=== PATIENT | female | born 1970 | race Two or more races ===

== ENCOUNTER 2025-09-03 10:53 | Inpatient (IN) | payer MEDICAID, OTHER ==
[~2025-09-03] VITALS: Ht 175.3 cm; Wt 80.1 kg
--- NOTE | 2025-09-03 11:39 | ED.PDOC ---
History of Present Illness HPI Comments 55-year-old female presents with multiple complaints. Patient reports having a pounding headache after falling and hitting the left side of her head, with no loss of consciousness or additional injuries sustained, this morning. She also reports on having a history of tremors, excessive sweating, multiple episodes of nausea and vomiting, and poor appetite for over the past 4-6 weeks. She reports only medical history of anxiety and [id number] aspirin use. Patient has not seen a primary care or outpatient specialist for symptoms, due to, recently, moving to local area. Denies any further acute symptoms. Chief Complaint: Fall Injury Time Seen by MD: 11:20 Reviewed Notes: Nurses Notes, Medications, Allergies Allergies: Coded Allergies: NO KNOWN ALLERGIES (Unverified , 09/03/25) Information Source: Patient Mode of Arrival: Ambulatory Severity: Moderate Timing: Weeks Duration: Since onset Prehospital treatment: None Past Medical History PAST MEDICAL HISTORY: Anxiety Surgical History: Denies all surgeries COLLEGE PRESIDENT History: No Pertinent COLLEGE PRESIDENT History Social History Smoker: Non-Smoker Alcohol: Denies ETOH Use Drugs: Denies Drug Use Lives In: Home All Other Systems: Reviewed and Negative (Comprehensive review of systems are negative unless otherwise stated in HPI) Physical Exam General Appearance: Moderate Distress HEENT: Normal ENT Inspection, Pharynx Normal, TMs Normal Neck: Full Range of Motion, Non-Tender, Normal, Normal Inspection Respiratory: Chest Non-Tender, Lungs Clear, No Accessory Muscle Use, No Respiratory Distress, Normal Breath Sounds Cardiovascular: No Edema, No JVD, No Murmur, No Gallop, Normal Peripheral Pulses, Regular Rate/Rhythm Breast Exam: Deferred Gastrointestinal: No Organomegaly, Non Tender, No Pulsatile Mass, Normal Bowel Sounds, Soft Genitalia: Deferred Pelvic: Deferred Rectal: Deferred Extremities: No calf tenderness, Normal capillary refill, Normal inspection, Normal range of motion, Non-tender, No pedal edema Musculoskeletal : Apperance: Normal Neurologic: Alert, creative strategist II-XII nml as Tested, No Motor Deficits, Normal Affect, Normal Mood, No Sensory Deficits Cerebellar Function: Normal Reflexes: Normal Skin: Dry, Normal Color, Warm Peripheral Pulses: 3+ Radial (R), 3+ Radial (L) Lymphatic: No Adenopathy Was a procedure done? Was a procedure done?: No Differential Dx Considerations may include: Closed head injury, fractures, contusions, abrasions, viral syndrome, pneumonia, sepsis, UTI, electrolyte imbalance, dehydration, among others X-Ray, Labs, Meds, VS Vital Signs Date Time Temp Pulse Resp B/P (MAP) Pulse Ox O2 Delivery O2 Flow Rate FiO2 09/03/25 11:02 115 09/03/25 10:55 97.6 120 20 120/84 98 97.6 Lab Test 09/03/25 12:51 09/03/25 12:00 Range/Units Urine Color Yellow Yellow Urine Clarity Clear Clear Urine pH 7.0 5.0-9.0 Urine Specific [place] 1.022 1.001-1.035 Urine Protein 1+ H Negative Urine Ketones 1+ H Negative Urine Blood Negative Negative /uL Urine Nitrite Negative Negative Urine Bilirubin Negative Negative Urine Urobilinogen Normal Negative mg/dL Urine Leukocyte Esterase Negative Negative /uL Urine RBC 3 0 - 4 /hpf Urine Microscopic WBC 1 0-5 /HPF Urine Squamous Epithelial Cells Few <5 /hpf Urine Bacteria None seen None Seen /hpf Urine Hyaline Casts Mod 0 - 2 /lpf Urine Mucus Few None Seen Urine Glucose Normal Normal mg/dL White Blood Count 7.9 4.4-10.8 10^3/uL Red Blood Count 4.88 4.0-5.20 10^6/uL Hemoglobin 15.3 12.2-16.2 g/dL Hematocrit 44.6 36.0-46.0 % Mean Corpuscular Volume 91.4 80.0-100.0 fL Mean Corpuscular Hemoglobin 31.4 28.0-32.0 pg Mean Corpuscular Hemoglobin Concent 34.3 32.0-36.0 g/dL Red Cell Distribution Width 13.6 11.8-14.3 % Platelet Count 429 140-450 10^3/uL Mean Platelet Volume 7.4 6.9-10.8 fL Neutrophils (%) (Auto) 69.6 37.0-80.0 % Lymphocytes (%) (Auto) 23.4 10.0-50.0 % Monocytes (%) (Auto) 5.2 0.0-12.0 % Eosinophils (%) (Auto) 0.3 0.0-7.0 % Basophils (%) (Auto) 1.5 0.0-2.0 % Neutrophils # (Auto) 5.5 1.6-8.6 10 ^3/uL Lymphocytes # (Auto) 1.8 0.4-5.4 10 ^3/uL Monocytes # (Auto) 0.4 0-1.3 10 ^3/uL Eosinophils # (Auto) 0 0-0.8 10 ^3/uL Basophils # (Auto) 0.1 0-0.2 10 ^3/uL Nucleated Red Blood Cells 0.1 % Sodium Level 139 136-145 mmol/L Potassium Level 4.5 3.5-5.1 mmol/L Chloride Level 103 98-107 mmol/L Carbon Dioxide Level 26 20-31 mmol/L Anion Gap 10 5-15 Blood Urea Nitrogen 11 9-23 mg/dL Creatinine 0.85 0.550-1.02 mg/dL Glomerular Filtration Rate Calc 80 >90 mL/min BUN/Creatinine Ratio 12.9 10.0-20.0 Serum Glucose 98 74-106 mg/dL Calcium Level 9.9 8.7-10.4 mg/dL Troponin I High Sensitivity < 3 L </=34 ng/L Current Medications Medications (Trade) Dose Ordered Sig/Jennifer Route Start Time Stop Time Status Last Admin Sodium Chloride 1,000 ml @ 1,000 mls/hr Q1H ONCE IV 09/03/25 12:00 09/03/25 12:59 DC 09/03/25 12:39 Lorazepam (Ativan Inj) 1 mg ONCE ONCE IV 09/03/25 12:00 09/03/25 12:01 DC 09/03/25 13:34 [place] [address] Ph: [phone] DIAGNOSTIC IMAGING Diagnostic Imaging Report : [id number] Signed PATIENT: PARISH MATTSON ACCT: [id number] UNIT: [id number] : 1970 LOC: ER ROOM / BED: / AGE / SEX: 55 / F ADM STATUS: REG ER SERVICE 1151 ORDERING PHYSICIAN: TANIA ROSS MD PROCEDURE(s): HWOCT - HEAD WITHOUT CONTRAST REASON: fall ORDER NUMBER(s): [id number], ACCESSION NUMBER(s): [id number] EXAM DESCRIPTION: CT HEAD WITHOUT CONTRAST CLINICAL HISTORY: fall COMPARISON: CT BRAIN on DOS: 04/19/23 TECHNIQUE: Noncontrast CT head was performed. Coronal MPR images were generated. CTDI/ DLP = / . Dose reduction technique with one or more of the following methods was performed: automated exposure control, adjustment of the mA and/or kV according to patient size, use of iterative reconstruction [place]. FINDINGS: No evidence of acute intracranial hemorrhage. No mass effect. No extra-axial collections of fluid or blood. The brain is normal in attenuation. The ventricles and sulci are normal in size for age. Clear basal cisterns. The calvarium is intact. The soft tissues are unremarkable. The paranasal sinuses and mastoid air cells are clear. IMPRESSION: 1. No acute intracranial findings. ATED BY: HAL QUIÑONES MD DICTATED DATE/TIME: 09/03/251257 SIGNED BY: HAL QUIÑONES MD SIGNED DATE/TIME: 09/03/251257 CC: Patient alert pain Anxious. Vitals stable. Answering questions. UA shows ketones. Possible gastroenteritis. Establish intravenous access. Was given fluids. She did fall hit her head. CT of the head reviewed does not show any acute changes pain Continues to be jittery. Possibly will need MRI. Explained to the patient. Continue monitoring. Time of 1ST Reevaluation: 11:50 Reevaluation 1ST: Unchanged Patient Education/Counseling: Diagnosis, Treatment Family Education/Counseling: No Family Present SEPSIS Sepsis Screen Date sepsis recognized/suspect: Sep 03, 2025 Time Sepsis recognized/suspect: 1056 Recent Procedure: No On Antibiotic Therapy: No Respiratory Rate >20: No Heart Rate >90: Yes Temp<36 C (96.8 F) or >38.3 C: No SBP <90 or MAP <65 mmHG: No New Acute Mental Status Change: No Is the patient on CPAP, BIPAP,: No Physician Orders Electrocardigram (09/03/25 11:09) Head Without Contrast (09/03/25 11:51) Vital Signs Date Time Temp Pulse Resp B/P (MAP) Pulse Ox O2 Delivery O2 Flow Rate FiO2 09/03/25 11:02 115 09/03/25 10:55 97.6 120 20 120/84 98 97.6 Laboratory Tests Test 09/03/25 12:00 White Blood Count 7.9 10^3/uL (4.4-10.8) Medications Medications Dose Ordered Sig/Jennifer Route Start Time Stop Time Status Last Admin Dose Admin Lorazepam 1 mg ONCE ONCE IV 09/03/25 12:00 09/03/25 12:01 DC 09/03/25 13:34 Sodium Chloride 1,000 ml @ 1,000 mls/hr Q1H ONCE IV 09/03/25 12:00 09/03/25 12:59 DC 09/03/25 12:39 Departure 1 Departure Time of Disposition: 14:42 Impression: Primary Impression: Head injury Qualified Codes: S09.90XA - Unspecified injury of head, initial encounter Additional Impressions: Gastroenteritis Dehydration Disposition: ADMITTED INPATIENT Admit to: Med Surg Condition: Guarded Critical Care Note Critical Care Time?: No Stability Stability form required: No Heart Score Heart Score: Heart Score Response (Comments) Value History N/A 0 EKG N/A 0 Age N/A 0 Risk Factors N/A 0 Troponin N/A 0 Total 0 I personally scribed for TANIA ROSS MD ([email or web address]) on 09/03/25 at 11:39. Electronically submitted by Federico Ngo ([email or web address]). I personally scribed for TANIA ROSS MD ([email or web address]) on 09/03/25 at 14:53. Electronically submitted by Federico Ngo ([email or web address]). TANIA ROSS MD Sep 03, 2025 11:39
[2025-09-03 12:13] LABS: Hematocrit 44.6 % (36.0-46.0); Hemoglobin 15.3 g/dL (12.2-16.2); Mean Corpuscular Hemoglobin 31.4 pg (28.0-32.0); Mean Corpuscular Volume 91.4 fL (80.0-100.0); Nucleated Red Blood Cells % 0.1 %
[2025-09-03 12:16] LABS: Chloride 103 mmol/L (98-107); Potassium 4.5 mmol/L (3.5-5.1); Sodium 139 mmol/L (136-145)
[2025-09-03 12:17] LABS: Anion Gap 10 (5-15); Carbon Dioxide 26 mmol/L (20-31)
[2025-09-03 12:18] LABS: Calcium 9.9 mg/dL (8.7-10.4)
[2025-09-03 12:22] LABS: BUN/Creatinine Ratio 12.9 (10.0-20.0); Blood Urea Nitrogen 11 mg/dL (9-23); Glucose 98 mg/dL (74-106)
[2025-09-03] MEDS: SODIUM CHLORIDE 0.9% 1,000 ML IV ONE ×2 (12:39→15:54)
--- NOTE | 2025-09-03 13:00 | DVH ---
EXAM DESCRIPTION: CT HEAD WITHOUT CONTRAST CLINICAL HISTORY: fall COMPARISON: CT BRAIN on DOS: 04/19/23 TECHNIQUE: Noncontrast CT head was performed. Coronal MPR images were generated. CTDI/ DLP = / . Dose reduction technique with one or more of the following methods was performed: automated exposure control, adjustment of the mA and/or kV according to patient size, use of iterative reconstruction [place]. FINDINGS: No evidence of acute intracranial hemorrhage. No mass effect. No extra-axial collections of fluid or blood. The brain is normal in attenuation. The ventricles and sulci are normal in size for age. Clear basal cisterns. The calvarium is intact. The soft tissues are unremarkable. The paranasal sinuses and mastoid air cells are clear. IMPRESSION: 1. No acute intracranial findings.
[2025-09-03 13:13] LABS: Urine Protein, UAD 1+ (Negative)
[2025-09-03] MEDS: LORazepam 2MG/ML-1ML VIAL IV ONE (13:34)
[2025-09-03] MEDS ORDERED: NITROGLYCERIN 0.4 MG SL TAB SL PRN (15:30)
[2025-09-03] MEDS ORDERED: MORPHINE SULFATE INJ 2 MG/ml SYRG IV PRN (15:30)
--- NOTE | 2025-09-03 15:32 | DVHHPRES ---
History of Present Illness Resident Creating Document: GEOVANI QUEEN RESIDENT History of Present Illness 55-year-old female patient with no known medical conditions presenting with fall and presyncope and 4-7 week history of multiple symptoms including excessive sweating, headaches, dizziness, and generalized shaking that has been ongoing daily. The patient reports the shaking affects the entire body but is most prominent in the hands, and describes feeling unable to control it, particularly in stressful situations. The patient has been experiencing significant sleep deprivation for 7-8 weeks, reporting no sleep since Friday. Associated gastrointestinal symptoms include nausea, vomiting approximately 4 times per week over the past 4 weeks, decreased appetite, and food not tasting good. The patient reports feeling sick every day and describes significant anxiety and nervousness, which may be contributing to stomach upset. 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 HEENT: Positive for headache. Cardiovascular: Negative for chest tightness. Gastrointestinal: Positive for nausea, vomiting (approximately 4 times per week for 4 weeks), decreased appetite, negative taste of food, stomach upset. Neurological: Positive for dizziness, generalized shaking (most prominent in hands). Psychiatric: Positive for anxiety, sleep deprivation for 7-8 weeks. Allergies: Coded Allergies: NO KNOWN ALLERGIES (Unverified , 09/03/25) Exam Vital Signs Vital Signs Date Time Temp Pulse Resp B/P (MAP) Pulse Ox O2 Delivery O2 Flow Rate FiO2 09/03/25 11:02 115 09/03/25 10:55 97.6 20 120/84 98 97.6 Exam General: Patient appears anxious with bloodshot eyes. HEENT: EOMI, Moist mucous membranes. No scleral icterus. No cervical lymp hadenopathy. LUNGS: Clear to auscultation bilaterally. No accessory muscle use. CARDIOVASCULAR: Regular rate and rhythm. No murmur. No JVD. ABDOMEN: Soft, nontender and nondistended. No palpable masses. EXTREMITIES: No edema. Nontender. Upper extremity tremor noted SKIN: No rashes or lesions. Warm. NEUROLOGIC: Alert and oriented X3 Labs/Xrays Labs Test 09/03/25 12:51 09/03/25 12:00 Range/Units Urine Color Yellow Yellow Urine Clarity Clear Clear Urine pH 7.0 5.0-9.0 Urine Specific [place] 1.022 1.001-1.035 Urine Protein 1+ H Negative Urine Ketones 1+ H Negative Urine Blood Negative Negative /uL Urine Nitrite Negative Negative Urine Bilirubin Negative Negative Urine Urobilinogen Normal Negative mg/dL Urine Leukocyte Esterase Negative Negative /uL Urine RBC 3 0 - 4 /hpf Urine Microscopic WBC 1 0-5 /HPF Urine Squamous Epithelial Cells Few <5 /hpf Urine Bacteria None seen None Seen /hpf Urine Hyaline Casts Mod 0 - 2 /lpf Urine Mucus Few None Seen Urine Glucose Normal Normal mg/dL White Blood Count 7.9 4.4-10.8 10^3/uL Red Blood Count 4.88 4.0-5.20 10^6/uL Hemoglobin 15.3 12.2-16.2 g/dL Hematocrit 44.6 36.0-46.0 % Mean Corpuscular Volume 91.4 80.0-100.0 fL Mean Corpuscular Hemoglobin 31.4 28.0-32.0 pg Mean Corpuscular Hemoglobin Concent 34.3 32.0-36.0 g/dL Red Cell Distribution Width 13.6 11.8-14.3 % Platelet Count 429 140-450 10^3/uL Mean Platelet Volume 7.4 6.9-10.8 fL Neutrophils (%) (Auto) 69.6 37.0-80.0 % Lymphocytes (%) (Auto) 23.4 10.0-50.0 % Monocytes (%) (Auto) 5.2 0.0-12.0 % Eosinophils (%) (Auto) 0.3 0.0-7.0 % Basophils (%) (Auto) 1.5 0.0-2.0 % Neutrophils # (Auto) 5.5 1.6-8.6 10 ^3/uL Lymphocytes # (Auto) 1.8 0.4-5.4 10 ^3/uL Monocytes # (Auto) 0.4 0-1.3 10 ^3/uL Eosinophils # (Auto) 0 0-0.8 10 ^3/uL Basophils # (Auto) 0.1 0-0.2 10 ^3/uL Nucleated Red Blood Cells 0.1 % Sodium Level 139 136-145 mmol/L Potassium Level 4.5 3.5-5.1 mmol/L Chloride Level 103 98-107 mmol/L Carbon Dioxide Level 26 20-31 mmol/L Anion Gap 10 5-15 Blood Urea Nitrogen 11 9-23 mg/dL Creatinine 0.85 0.550-1.02 mg/dL Glomerular Filtration Rate Calc 80 >90 mL/min BUN/Creatinine Ratio 12.9 10.0-20.0 Serum Glucose 98 74-106 mg/dL Calcium Level 9.9 8.7-10.4 mg/dL Troponin I High Sensitivity < 3 L </=34 ng/L SEPSIS Sepsis Screen Date sepsis recognized/suspect: Sep 03, 2025 Time Sepsis recognized/suspect: 1055 Recent Procedure: No On Antibiotic Therapy: No Respiratory Rate >20: No Heart Rate >90: Yes Temp<36 C (96.8 F) or >38.3 C: No SBP <90 or MAP <65 mmHG: No New Acute Mental Status Change: No Is the patient on CPAP, BIPAP,: No Physician Orders Electrocardigram (09/03/25 11:09) Head Without Contrast (09/03/25 11:51) Admit (09/03/25 15:26) Code Status (09/03/25 15:26) 2 Gm Sodium Diet (09/03/25 Dinner) Ondansetron Hcl (Zofran) (09/03/25 15:30) Complete Blood Count (09/04/25 04:00) Comprehensive Metabolic Panel (09/04/25 04:00) Echo 2d Mode Cardiac Dop (09/03/25 15:26) Acetaminophen Tablet (Tylenol Tablet) (09/03/25 15:30) Morphine Sulfate Injection (09/03/25 15:30) Nitroglycerin Sublingual (Ntrostat Subli (09/03/25 15:30) Morphine Sulfate Injection (09/03/25 15:30) Oxygen By Nasal Cannula (09/03/25 15:26) Stat Ekg For Chest Pain (09/03/25 15:26) Notify Md Of Changes From Base (09/03/25 15:26) Stereo Operator For 24 Hours (09/03/25 15:26) Emergency Dysrhythmia Protocol (09/03/25 15:26) Rhythm Strips Once Every Shift (09/03/25 15:26) NS (09/03/25 15:30) Lorazepam 2mg/Ml Inj (Ativan Inj) (09/03/25 15:30) Covid19 Antigen Isabelle (09/03/25 ) Rapid Influenza A&B (09/03/25 15:26) Thyroid Stimulating Hormone (09/03/25 15:26) Drug Screen (09/03/25 15:26) Free T4 (Free Thyroxine) (09/03/25 15:26) Vital Signs Date Time Temp Pulse Resp B/P (MAP) Pulse Ox O2 Delivery O2 Flow Rate FiO2 09/03/25 11:02 115 09/03/25 10:55 97.6 120 20 120/84 98 97.6 Laboratory Tests Test 09/03/25 12:00 White Blood Count 7.9 10^3/uL (4.4-10.8) Medications Medications Dose Ordered Sig/Jennifer Route Start Time Stop Time Status Last Admin Dose Admin Lorazepam 1 mg ONCE ONCE IV 09/03/25 12:00 09/03/25 12:01 DC 09/03/25 13:34 1 MG Sodium Chloride 1,000 ml @ 1,000 mls/hr Q1H ONCE IV 09/03/25 12:00 09/03/25 12:59 DC 09/03/25 12:39 1,000 MLS/HR Assessment/Plan Assessment/Plan # presyncope # fall # Generalized tremor and anxiety - Head CT shows: No acute intracranial findings. - Admit for further evaluation - Check thyroid function tests - Cardiac evaluation - IV fluids - Ativan - consult psychiatry if needed # insomnia - ordered thyroid function test -advised about sleep hygiene. # intractable nausea vomiting - Zofran as needed Goal of care discussed with patient for 37 minutes: Full code Plan discussed with Dr. Tony Plan discussed with: Patient My Orders Orders - GEOVANI QUEEN RESIDENT Procedure Category Date Status Time Admit ADMIT 09/03/25 Transmitted 15:26 Code Status CODE 09/03/25 Verified 15:26 2 Gm Sodium Diet DIET 09/03/25 Verified Dinner Ondansetron Hcl PHA 09/03/25 Verified (Zofran) 15:30 Complete Blood Count LAB 09/04/25 Verified 04:00 Comprehensive LAB 09/04/25 Verified Metabolic Panel 04:00 Echo 2d Mode Cardiac US 09/03/25 Verified DOP 15:26 Acetaminophen Tablet PHA 09/03/25 Verified (Tylenol Tablet) 15:30 Morphine Sulfate PHA 09/03/25 Verified Injection 15:30 Nitroglycerin PHA 09/03/25 Verified Sublingual (Ntrostat 15:30 Morphine Sulfate PHA 09/03/25 Verified Injection 15:30 Oxygen By Nasal RT 09/03/25 Verified Cannula 15:26 Stat Ekg For Chest [facility] 09/03/25 Verified Pain 15:26 Notify Md Of Changes [facility] 09/03/25 Verified From Base 15:26 Stereo Operator For [facility] 09/03/25 Verified 24 Hours 15:26 Emergency Dysrhythmia [facility] 09/03/25 Verified Protocol 15:26 Rhythm Strips Once [facility] 09/03/25 Verified Every Shift 15:26 NS PHA 09/03/25 Verified 15:30 Lorazepam 2mg/Ml Inj PHA 09/03/25 Verified (Ativan Inj) 15:30 Covid19 Antigen Isabelle LAB 09/03/25 Verified Rapid Influenza A&B LAB 09/03/25 Verified 15:26 Thyroid Stimulating LAB 09/03/25 Transmitted Hormone 15:26 Drug Screen LAB 09/03/25 Verified 15:26 Free T4 (Free LAB 09/03/25 Transmitted Thyroxine) 15:26 Date of Service: Sep 03, 2025 Billing Provider: LILIAM TONY MD Common Visit Codes: [id number] INP/OBS CARE (HIGH) Secondary Visit Codes: [id number] CARE PLAN 30 MINUTES GEOVANI QUEEN RESIDENT Sep 03, 2025 15:32
[2025-09-03 15:58] LABS: Benzodiazephine Screen, Urine Neg (NEGATIVE); Cannabinoid Screen, Urine Neg (NEGATIVE)
[2025-09-03 16:00] LABS: Amphetamine Screen, Urine Neg (NEGATIVE); Barbiturate Scree,Urine Neg (NEGATIVE); Cocaine Screen, Urine Neg (NEGATIVE); Opiate Scree,Urine Neg (NEGATIVE); Phencyclidine Screen, Urine Neg (NEGATIVE)
[2025-09-03 17:47] LABS: COVID19 ANTIGEN SOFIA FIA NEGATIVE (NEGATIVE)
[2025-09-03 21:00] VITALS: BP_SYST 119; BP_SYST 134; BP_DIAS 74; BP_DIAS 91; PULSE 102; PULSE 116; RESP 17; RESP 20; TEMP 98; TEMP 98.2; O2SAT 95; O2SAT 96
[2025-09-03] MEDS: LORazepam 2MG/ML-1ML VIAL IV PRN (21:21)
[2025-09-03] MEDS: ACETAMINOPHEN 325 MG TAB PO PRN (21:22)
[2025-09-03] MEDS ORDERED: ASPI-543 PO (21:28)
[2025-09-04] VITALS (7 sets, daily range): BP systolic 122–143; BP diastolic 75–86; PULSE 82–106; RESP 16–20; TEMP 97–98; O2SAT 94–99
[2025-09-04 06:46] LABS: Hematocrit 41.8 % (36.0-46.0); Hemoglobin 14.5 g/dL (12.2-16.2); Mean Corpuscular Hemoglobin 31.8 pg (28.0-32.0); Mean Corpuscular Volume 91.9 fL (80.0-100.0); Nucleated Red Blood Cells % 0.1 %
[2025-09-04 07:03] LABS: Alanine Aminotransferase 19 U/L (7-40); Albumin 4.4 g/dL (3.2-4.8); Alkaline Phosphatase 92 U/L (46-116); Anion Gap 7 (5-15); BUN/Creatinine Ratio 12.3 (10.0-20.0); Bilirubin, Total 0.9 mg/dL (0.2-1.0); Calcium 9.6 mg/dL (8.7-10.4); Carbon Dioxide 28 mmol/L (20-31); Chloride 104 mmol/L (98-107); Glucose 92 mg/dL (74-106); Potassium 4.0 mmol/L (3.5-5.1); Sodium 139 mmol/L (136-145); Total Protein 7.8 g/dL (5.7-8.2)
[2025-09-04 07:04] LABS: Blood Urea Nitrogen 8 mg/dL (9-23)
[2025-09-04] MEDS: ONDANSETRON HCL 4 MG/2 ML VIAL IV PRN (09:49)
[2025-09-04] MEDS: MORPHINE SULFATE INJ 2 MG/ml SYRG IV PRN (12:10)
--- NOTE | 2025-09-04 13:53 | DVHPN2 ---
Progress Note Date Seen: Sep 04, 2025 Medical Necessity Reason Pt with a Central, PICC or Fol: No Subjective Patient reports: No new complaints Review of Systems: :Abnormal (Persistent headache) Objective vital signs Vital Sign Date Time Temp Pulse Resp B/P (MAP) Pulse Ox O2 Delivery O2 Flow Rate FiO2 09/04/25 13:00 97.7 92 20 125/86 (99) 94 97.7 09/04/25 08:00 Room Air* 0 21 Total Intake and Output 09/03/25 09/03/25 09/04/25 15:00 23:00 07:00 Intake Total 1000 ml 100 ml Balance 1000 ml 100 ml medications Current Medications Medications Dose Ordered Sig/Jennifer Route Start Time Stop Time Status Last Admin Dose Admin Ondansetron HCl 4 mg Q4HP PRN IV 09/03/25 15:30 09/04/25 09:49 4 MG Acetaminophen 650 mg Q6HP PRN PO 09/03/25 15:30 09/04/25 09:49 650 MG Morphine Sulfate 2 mg Q4HPRN PRN IV 09/03/25 15:30 09/04/25 12:10 2 MG Nitroglycerin 0.4 mg Q5MINP PRN SL 09/03/25 15:30 Morphine Sulfate 2 mg Q30M PRN IV 09/03/25 15:30 Lorazepam 1 mg Q12HR PRN IV 09/03/25 15:30 09/04/25 09:40 1 MG Examination: GENERAL:Normal, HEENT:Normal, NECK:Normal, LUNGS:Normal, CVS:Normal, ABDOMEN:Normal, MSK:Normal, SKIN:Normal, NEURO:Abnormal (AO x3, persistent throbbing headache) laboratory and microbiology Laboratory Tests 09/04/25 06:18 Test 09/04/25 06:18 Range/Units Serum Glucose 92 74-106 mg/dL Labs and/or images reviewed: Labs reviewed by me, Image(s) reviewed by me Problem List/Assessment/Plan Problem List/Assessment/Plan # presyncope # fall # Generalized tremor and anxiety - Head CT shows: No acute intracranial findings. - Admit for further evaluation -TSH within normal range - check echo of the heart - IV fluids - Ativan - consult psychiatry if needed # insomnia - TSH within -advised about sleep hygiene. # intractable nausea vomiting - Zofran as needed Plan discussed with: Patient Dietary Evaluation Review Comments: 1) Continue 2g Na diet 2) Continue antiemetics PRN 3) Initiate Ensure High Protein qd Encourage optimal PO intake 4) Continue to monitor I&O, labs, and skin integrity Expected Outcomes/Goals: 1) appetite and labs to improve 2) f/u in 3-5 days Date of Service: Sep 04, 2025 Billing Provider: AMPARO TAN MD Common Visit Codes: [id number] SAME DATE (MOD) AMPARO TAN MD Sep 04, 2025 13:53
--- NOTE | 2025-09-04 15:42 | DVHSR ---
APPROVED REPORT EXAM: LIMITED Two-dimensional and M-mode echocardiogram with Doppler and color Doppler. Blood Pressure: 143/85 mmHg INDICATION Presyncope RISK FACTORS Height: 5' 9", Weight: 174 DIMENSIONS LVDd4.5 (3.8-5.7cm)LA (2D)3.5 (1.9-4.0cm)Aortic Root2.8 (2.0-3.7cm) LVDs3.2 (2.5-4.0cm)LA (MM) (1.9-4.0cm)Aortic Cusp Exc1.6 (1.5-2.0cm) EF (%) 57.0 (55-70%)Rt. Atrium3.7 (1.9-4.0cm)Asc. Aorta cm IVSd0.8 (0.7-1.1cm)RV (D) (1.8-2.4cm) PWd0.8 (0.7-1.1cm) Mitral Valve MitralMitral Stenosis E wave1.00m/sMV Mean GR.mmHg A wave0.90m/sMV Peak GR.mmHg E/A ratio1.12D MVAcm2 Aortic Valve Aortic ValveAortic Stenosis V10.90m/Betty Mean GR.4mmHg V21.40m/Betty Peak GR.9mmHg LVOT Diameter2.2 (1.8-2.4cm)Doppler AVA2.44cm2 Pulmonic Valve V20.50m/s Other Information Quality : Technically LimitedRhythm : Technically limited study due to body habitus, patient with breast implants Conclusion NORMAL LV EF AND IS 65% NORMAL VALVES NORMAL RV FUNCTION NO EFFUSION
[2025-09-05] VITALS (7 sets, daily range): BP systolic 116–140; BP diastolic 73–89; PULSE 77–95; RESP 16–18; TEMP 97.8–98.3; O2SAT 94–96
[2025-09-05] MEDS: MELATONIN 5 MG TAB PO ONE (00:54)
--- NOTE | 2025-09-05 11:27 | DVHPN2 ---
Reviewed: Care Plan, H&P, Labs, Medications, Previous Orders, Radiology Changes from previous H/P or p: No Changes Objective Vitals Vital Signs Date Time Temp Pulse Resp B/P (MAP) Pulse Ox O2 Delivery O2 Flow Rate FiO2 09/05/25 09:00 98.0 77 16 132/83 (99) 96 98.0 09/05/25 08:00 Room Air* 0 21 Intake/Output Intake and Output 09/05/25 07:00 Intake Total 1520 ml Output Total 2 ml Balance 1518 ml Intake Oral 1520 ml Output Urine Total 2 ml # Voids 3 # Bowel Movements 2 Medications Current Medications Medications Dose Ordered Sig/Jennifer Route Start Time Stop Time Status Last Admin Dose Admin Ondansetron HCl 4 mg Q4HP PRN IV 09/03/25 15:30 09/05/25 09:34 4 MG Acetaminophen 650 mg Q6HP PRN PO 09/03/25 15:30 09/04/25 22:11 650 MG Morphine Sulfate 2 mg Q4HPRN PRN IV 09/03/25 15:30 09/04/25 21:15 2 MG Nitroglycerin 0.4 mg Q5MINP PRN SL 09/03/25 15:30 Morphine Sulfate 2 mg Q30M PRN IV 09/03/25 15:30 Lorazepam 1 mg Q12HR PRN IV 09/03/25 15:30 09/05/25 10:55 1 MG Laboratory Results Laboratory Tests 09/04/25 06:18 Urinalysis Test 09/03/25 12:51 Urine Color Yellow (Yellow) Urine Clarity Clear (Clear) Urine pH 7.0 (5.0-9.0) Urine Specific [place] 1.022 (1.001-1.035) Urine Protein 1+ (Negative) H Urine Ketones 1+ (Negative) H Urine Blood Negative /uL (Negative) Urine Nitrite Negative (Negative) Urine Bilirubin Negative (Negative) Urine Urobilinogen Normal mg/dL (Negative) Urine Leukocyte Esterase Negative /uL (Negative) Urine RBC 3 /hpf (0 - 4) Urine Microscopic WBC 1 /HPF (0-5) Urine Squamous Epithelial Cells Few /hpf (<5) Urine Bacteria None seen /hpf (None Seen) Urine Hyaline Casts Mod /lpf (0 - 2) Urine Mucus Few (None Seen) Urine Glucose Normal mg/dL (Normal) Labs and/or images reviewed: Labs reviewed by me, Image(s) reviewed by me Assessment/Plan Assessment/Plan # presyncope: Echocardiogram 65 percent ejection fraction # fall # Generalized tremor and anxiety: CT head negative, chest x-ray negative: Ativan # insomnia # intractable nausea vomiting # history of anxiety and depression being treated by psychiatrist at [place] two months back, patient has relocated to the [facility] recently, tele psych consult placed; resume home medications Klonopin and Wellbutrin # diabetes ruled out All labs were normal Flu test negative COVID test neg VINCENT Quiles at bedside Plan discussed with: Patient Date of Service: Sep 05, 2025 Billing Provider: JONATHAN GONZALEZ MD Common Visit Codes: [id number] INP/OBS CARE([facility]) JONATHAN GONZALEZ MD Sep 05, 2025 11:27
[2025-09-05 13:35] LABS: Hepatitis B Surface Antigen Negative (Negative)
[2025-09-05 13:51] LABS: Hepatitis C Antibody Negative (Negative)
[2025-09-05] MEDS: clonazePAM 0.5 MG TAB PO SCH (15:28)
--- NOTE | 2025-09-05 20:08 | DVHINCON2 ---
Date of Service if different f: Sep 05, 2025 Time of Service: 20:06 Consultation ([place]) Labs Laboratory Tests Test 09/03/25 12:00 09/03/25 12:51 09/03/25 17:13 09/04/25 06:18 Troponin I High Sensitivity < 3 ng/L (</=34) Thyroid Stimulating Hormone (TSH) 1.52 uIU/mL (0.55-4.78) Free Thyroxine (T4) Calculated 1.49 ng/dL (0.89-1.76) Hepatitis B Surface Antigen Negative (Negative) Hepatitis C Antibody Negative (Negative) Urine Color Yellow (Yellow) Urine Clarity Clear (Clear) Urine pH 7.0 (5.0-9.0) Urine Specific [place] 1.022 (1.001-1.035) Urine Protein 1+ (Negative) Urine Ketones 1+ (Negative) Urine Blood Negative /uL (Negative) Urine Nitrite Negative (Negative) Urine Bilirubin Negative (Negative) Urine Urobilinogen Normal mg/dL (Negative) Urine Leukocyte Esterase Negative /uL (Negative) Urine RBC 3 /hpf (0 - 4) Urine Microscopic WBC 1 /HPF (0-5) Urine Squamous Epithelial Cells Few /hpf (<5) Urine Bacteria None seen /hpf (None Seen) Urine Hyaline Casts Mod /lpf (0 - 2) Urine Mucus Few (None Seen) Urine Glucose Normal mg/dL (Normal) Urine Opiates Screen Neg (NEGATIVE) Urine Fentanyl Screen Neg (NEGATIVE) Urine Barbiturates Screen Neg (NEGATIVE) Urine Phencyclidine Screen Neg (NEGATIVE) Urine Amphetamines Screen Neg (NEGATIVE) Urine Benzodiazepines Screen Neg (NEGATIVE) Urine Cocaine Screen Neg (NEGATIVE) Urine Cannabinoids Screen Neg (NEGATIVE) Influenza Type A Antigen Negative (Negative) Influenza Type B Antigen Negative (Negative) SARS-CoV-2 Antigen (Rapid) Negative (NEGATIVE) White Blood Count 6.9 10^3/uL (4.4-10.8) Red Blood Count 4.55 10^6/uL (4.0-5.20) Hemoglobin 14.5 g/dL (12.2-16.2) Hematocrit 41.8 % (36.0-46.0) Mean Corpuscular Volume 91.9 fL (80.0-100.0) Mean Corpuscular Hemoglobin 31.8 pg (28.0-32.0) Mean Corpuscular Hemoglobin Concent 34.6 g/dL (32.0-36.0) Red Cell Distribution Width 13.5 % (11.8-14.3) Platelet Count 398 10^3/uL (140-450) Mean Platelet Volume 7.8 fL (6.9-10.8) Neutrophils (%) (Auto) 44.7 % (37.0-80.0) Lymphocytes (%) (Auto) 44.4 % (10.0-50.0) Monocytes (%) (Auto) 7.7 % (0.0-12.0) Eosinophils (%) (Auto) 1.8 % (0.0-7.0) Basophils (%) (Auto) 1.4 % (0.0-2.0) Neutrophils # (Auto) 3.1 10 ^3/uL (1.6-8.6) Lymphocytes # (Auto) 3.0 10 ^3/uL (0.4-5.4) Monocytes # (Auto) 0.5 10 ^3/uL (0-1.3) Eosinophils # (Auto) 0.1 10 ^3/uL (0-0.8) Basophils # (Auto) 0.1 10 ^3/uL (0-0.2) Nucleated Red Blood Cells 0.1 % Sodium Level 139 mmol/L (136-145) Potassium Level 4.0 mmol/L (3.5-5.1) Chloride Level 104 mmol/L (98-107) Carbon Dioxide Level 28 mmol/L (20-31) Anion Gap 7 (5-15) Blood Urea Nitrogen 8 mg/dL (9-23) Creatinine 0.65 mg/dL (0.550-1.02) Glomerular Filtration Rate Calc 103 mL/min (>90) BUN/Creatinine Ratio 12.3 (10.0-20.0) Serum Glucose 92 mg/dL (74-106) Calcium Level 9.6 mg/dL (8.7-10.4) Total Bilirubin 0.9 mg/dL (0.2-1.0) Aspartate Amino Transf (AST/SGOT) 22 U/L (13-40) Alanine Aminotransferase (ALT/SGPT) 19 U/L (7-40) Alkaline Phosphatase 92 U/L (46-116) Total Protein 7.8 g/dL (5.7-8.2) Albumin 4.4 g/dL (3.2-4.8) Vitals Vital Signs Date Time Temp Pulse Resp B/P (MAP) Pulse Ox O2 Delivery O2 Flow Rate FiO2 09/05/25 17:00 98.3 95 16 116/73 (87) 94 98.3 09/05/25 08:00 Room Air* 0 21 Current medications Current Medications Medications Dose Ordered Sig/Jennifer Route Start Time Stop Time Status Last Admin Dose Admin Ondansetron HCl 4 mg Q4HP PRN IV 09/03/25 15:30 09/05/25 09:34 4 MG Acetaminophen 650 mg Q6HP PRN PO 09/03/25 15:30 09/04/25 22:11 650 MG Morphine Sulfate 2 mg Q4HPRN PRN IV 09/03/25 15:30 09/05/25 11:46 2 MG Nitroglycerin 0.4 mg Q5MINP PRN SL 09/03/25 15:30 Morphine Sulfate 2 mg Q30M PRN IV 09/03/25 15:30 Lorazepam 1 mg Q12HR PRN IV 09/03/25 15:30 09/05/25 10:55 1 MG Clonazepam 1 mg TID PO 09/05/25 14:00 09/05/25 15:28 1 MG Bupropion HCl 150 mg BID@07,19 PO 09/05/25 19:00 PSYCHIATRY CONSULTATION INITIAL EVALUATION REASON FOR CONSULT: Anxiety HPI: Pt presented to the hospital following a fall. She reports that prior to this, she has experienced several weeks of various physical symptoms including n/v, WELD[place], diaphoresis, insomnia, dizziness. She does not know what may be contributing to this, but feels unwell. Thus far, workup this admission noted to be unremarkable, with no clear source for patients symptoms. She denies use of any drugs or alcohol. Pt does note that she ended care with her prior psychiatrist due to moving. She had previously been prescribed Klonopin 1 mg BID, and had been on that or another benzo over 30 years. However, her most recent psychiatrist, cut the dose, so she was struggling while taking less. She ended care with that psychiatrist, tried to wean herself off, and finished her supply around 07/20/25. Since, pt has been more anxious, reports worsening insomnia, and has not been able to sleep days at a time. At times, pt says, things are so difficult she wonders if shed be better off . She says she would never harm herself, denies history of self-harm of suicide. She denies access to firearms. Pt is not quite depressed currently, mood is fair. She denies any symptoms of michael or psychosis. PSYCHIATRIC HISTORY: DIAGNOSIS: History of depression, anxiety. ADMISSIONS: No prior admissions. MEDICATION TRIALS: History of being on Klonopin and other benzodiazepine. Re ports also being on Wellbutrin. Has trialed Gabapentin, Trazodone, Hydroxyzine, Seroquel for sleep, says all are ineffective. Reports good effect with benzos and Ambien. OUTPATIENT CARE: No current established care. THERAPY: None currently SI/SELF-INJURY/SUICIDE ATTEMPT: None prior. No access to firearms. SUBSTANCE USE: None RELEVANT MEDICAL HISTORY: History of hyperthyroidism. Labs reviewed. TSH and T4 WNL. ALLERGIES: None MENTAL STATUS EXAMINATION: The patient is a well-groomed, cooperative adult female, alert and oriented to person, place, time, and situation. Eye contact is good, and behavior is calm and appropriate. Speech is normal in rate, tone, and volume. Mood is described as anxious but hopeful; affect is congruent and full-range. Thought process is linear, logical, and goal-directed. Thought content is devoid of psychosis, delusions, or suicidal/homicidal ideation. No hallucinations are reported or observed. Cognition is intact with good attention, concentration, and memory. Insight and judgment are fair. DIFFERENTIAL DIAGNOSIS: Generalized Anxiety Disorder Benzodiazepine Withdrawal or Cessation Effects Adjustment Disorder with Anxiety Major Depressive Disorder, Recurrent, Mild Insomnia Disorder, secondary to medication discontinuation ASSESSMENT: This is a 55yo woman with a long history of anxiety and depression, presenting with several weeks of physical and autonomic symptoms (nausea, vomiting, diaphoresis, dizziness, insomnia) without clear medical etiology. Her symptoms temporally coincide with recent cessation of long-term benzodiazepine use after over 30 years of daily Klonopin therapy. Current presentation includes heightened anxiety and severe insomnia but without evidence of psychosis, michael, or suicidal intent. Her physical symptoms cannot be clearly attributed to an anxiety disorder alone, and a component of benzodiazepine discontinuation remains possible. However, she does not meet criteria for a 5150 hold or for inpatient psychiatric admission, as she denies active suicidal intent or inability to care for herself. She demonstrates good insight and is motivated to stabilize with medication and outpatient follow-up. Restarting chronic benzodiazepine use is not recommended given the risk for dependence and limited long-term benefit. Alternative pharmacologic and nonpharmacologic options should be prioritized. RECOMMENDATIONS: 1. Legal: Patient does not meet criteria for involuntary hold (5150) or psychiatric hospitalization at this time. 2. Disposition: Discharge with outpatient psychiatric follow-up and referral to establish care with a new psychiatrist. Continue medical workup as clinically indicated to rule out non-psychiatric contributors to symptoms. 3. Medications: - Restart Wellbutrin (per previous effective dose). - Do not restart standing benzodiazepine. - Consider Remeron 7.5 mg PO QHS to target insomnia, anxiety, and mood. - May combine with either Hydroxyzine 50 mg PO QHS or Seroquel 50 mg PO QHS for additional sleep support. - If insomnia persists despite the above, consider Ambien 5 mg PO QHS short- term. 4. Medical Considerations: - Monitor for residual benzodiazepine withdrawal symptoms. - Rule out medical contributors to somatic symptoms (labs WNL; continue to monitor thyroid and metabolic parameters). 5. Other: - Encourage resumption of therapy to support anxiety management and coping strategies. - Reinforce sleep hygiene and gradual reintroduction of structured daily activities. - Provide education regarding risks of benzodiazepine dependence and alternative anxiety management strategies. RAJAT FRIAS MD Sep 05, 2025 20:08
[2025-09-06 08:00] VITALS: PULSE 84
[2025-09-06 08:20] VITALS: PULSE 98; RESP 16
[2025-09-06 09:00] VITALS: BP 126/80; PULSE 86; RESP 20; TEMP 98; O2SAT 96
--- NOTE | 2025-09-06 10:12 | DVHPN2 ---
Reviewed: Care Plan, H&P, Labs, Medications, Previous Orders, Radiology Changes from previous H/P or p: No Changes Objective Vitals Vital Signs Date Time Temp Pulse Resp B/P (MAP) Pulse Ox O2 Delivery O2 Flow Rate FiO2 09/06/25 09:00 98.0 86 20 126/80 (95) 96 98.0 09/06/25 08:20 Room Air* 0 21 Intake/Output Intake and Output 09/06/25 07:00 Intake Total 2450 ml Balance 2450 ml Intake Oral 2450 ml # Voids 13 # Bowel Movements 2 Medications Current Medications Medications Dose Ordered Sig/Jennifer Route Start Time Stop Time Status Last Admin Dose Admin Ondansetron HCl 4 mg Q4HP PRN IV 09/03/25 15:30 09/05/25 09:34 4 MG Acetaminophen 650 mg Q6HP PRN PO 09/03/25 15:30 09/04/25 22:11 650 MG Morphine Sulfate 2 mg Q4HPRN PRN IV 09/03/25 15:30 09/06/25 00:42 2 MG Nitroglycerin 0.4 mg Q5MINP PRN SL 09/03/25 15:30 Morphine Sulfate 2 mg Q30M PRN IV 09/03/25 15:30 Lorazepam 1 mg Q12HR PRN IV 09/03/25 15:30 09/05/25 23:01 1 MG Clonazepam 1 mg TID PO 09/05/25 14:00 09/06/25 06:04 1 MG Bupropion HCl 150 mg BID@07,19 PO 09/05/25 19:00 09/06/25 06:04 150 MG Laboratory Results Laboratory Tests 09/04/25 06:18 Urinalysis Test 09/03/25 12:51 Urine Color Yellow (Yellow) Urine Clarity Clear (Clear) Urine pH 7.0 (5.0-9.0) Urine Specific [place] 1.022 (1.001-1.035) Urine Protein 1+ (Negative) H Urine Ketones 1+ (Negative) H Urine Blood Negative /uL (Negative) Urine Nitrite Negative (Negative) Urine Bilirubin Negative (Negative) Urine Urobilinogen Normal mg/dL (Negative) Urine Leukocyte Esterase Negative /uL (Negative) Urine RBC 3 /hpf (0 - 4) Urine Microscopic WBC 1 /HPF (0-5) Urine Squamous Epithelial Cells Few /hpf (<5) Urine Bacteria None seen /hpf (None Seen) Urine Hyaline Casts Mod /lpf (0 - 2) Urine Mucus Few (None Seen) Urine Glucose Normal mg/dL (Normal) Labs and/or images reviewed: Labs reviewed by me, Image(s) reviewed by me Assessment/Plan Assessment/Plan Tele psych consult by Dr. Poole appreciated Not a 5150 Candidate Generalized Anxiety Disorder Benzodiazepine Withdrawal or Cessation Effects Adjustment Disorder with Anxiety Major Depressive Disorder, Recurrent, Mild Insomnia Disorder, secondary to medication discontinuation Recommended add Remeron 7.5 mg HS and Seroquel 50 mg HS DC benzodiazepines Presyncope: Echo 65 percent ejection fraction Falls Low back pain after fall: CT LS spine without contrast ordered Diabetes ruled out All labs were normal Flu test negative COVID test neg VINCENT Shaikh at bedside Plan discussed with: Patient My Orders Orders - JONATHAN GONZALEZ MD Procedure Category Date Status Time Clonazepam Tablet PHA 09/05/25 In Process (Klonopin Tablet) 14:00 Bupropion Tablet PHA 09/05/25 In Process (Wellbutrin Tablet) 19:00 *Tele Psych Consult CONS 09/05/25 Transmitted 11:28 Date of Service: Sep 06, 2025 Billing Provider: JONATHAN GONZALEZ MD Common Visit Codes: [id number] INP/OBS CARE(HIGH) JONATHAN GONZALEZ MD Sep 06, 2025 10:12
--- NOTE | 2025-09-06 10:19 | DVHDS2 ---
Discharge Summary Date of Admission Sep 03, 2025 at 15:26 Date of Discharge: Sep 06, 2025 Admitting Diagnosis Syncope and fall Wounds: None Labs/Diagnostic Data: Laboratory Results Test 09/04/25 06:18 09/03/25 17:13 09/03/25 12:51 09/03/25 12:00 White Blood Count 6.9 10^3/uL (4.4-10.8) Red Blood Count 4.55 10^6/uL (4.0-5.20) Hemoglobin 14.5 g/dL (12.2-16.2) Hematocrit 41.8 % (36.0-46.0) Mean Corpuscular Volume 91.9 fL (80.0-100.0) Mean Corpuscular Hemoglobin 31.8 pg (28.0-32.0) Mean Corpuscular Hemoglobin Concent 34.6 g/dL (32.0-36.0) Red Cell Distribution Width 13.5 % (11.8-14.3) Platelet Count 398 10^3/uL (140-450) Mean Platelet Volume 7.8 fL (6.9-10.8) Neutrophils (%) (Auto) 44.7 % (37.0-80.0) Lymphocytes (%) (Auto) 44.4 % (10.0-50.0) Monocytes (%) (Auto) 7.7 % (0.0-12.0) Eosinophils (%) (Auto) 1.8 % (0.0-7.0) Basophils (%) (Auto) 1.4 % (0.0-2.0) Neutrophils # (Auto) 3.1 10 ^3/uL (1.6-8.6) Lymphocytes # (Auto) 3.0 10 ^3/uL (0.4-5.4) Monocytes # (Auto) 0.5 10 ^3/uL (0-1.3) Eosinophils # (Auto) 0.1 10 ^3/uL (0-0.8) Basophils # (Auto) 0.1 10 ^3/uL (0-0.2) Nucleated Red Blood Cells 0.1 % Sodium Level 139 mmol/L (136-145) Potassium Level 4.0 mmol/L (3.5-5.1) Chloride Level 104 mmol/L (98-107) Carbon Dioxide Level 28 mmol/L (20-31) Anion Gap 7 (5-15) Blood Urea Nitrogen 8 mg/dL (9-23) Creatinine 0.65 mg/dL (0.550-1.02) Glomerular Filtration Rate Calc 103 mL/min (>90) BUN/Creatinine Ratio 12.3 (10.0-20.0) Serum Glucose 92 mg/dL (74-106) Calcium Level 9.6 mg/dL (8.7-10.4) Total Bilirubin 0.9 mg/dL (0.2-1.0) Aspartate Amino Transferase (AST) 22 U/L (13-40) Alanine Aminotransferase (ALT) 19 U/L (7-40) Alkaline Phosphatase 92 U/L (46-116) Total Protein 7.8 g/dL (5.7-8.2) Albumin 4.4 g/dL (3.2-4.8) Influenza Type A Antigen Negative (Negative) Influenza Type B Antigen Negative (Negative) SARS-CoV-2 Antigen (Rapid) Negative (NEGATIVE) Urine Color Yellow (Yellow) Urine Clarity Clear (Clear) Urine pH 7.0 (5.0-9.0) Urine Specific [place] 1.022 (1.001-1.035) Urine Protein 1+ (Negative) Urine Ketones 1+ (Negative) Urine Blood Negative /uL (Negative) Urine Nitrite Negative (Negative) Urine Bilirubin Negative (Negative) Urine Urobilinogen Normal mg/dL (Negative) Urine Leukocyte Esterase Negative /uL (Negative) Urine RBC 3 /hpf (0 - 4) Urine Microscopic WBC 1 /HPF (0-5) Urine Squamous Epithelial Cells Few /hpf (<5) Urine Bacteria None seen /hpf (None Seen) Urine Hyaline Casts Mod /lpf (0 - 2) Urine Mucus Few (None Seen) Urine Glucose Normal mg/dL (Normal) Urine Opiates Screen Neg (NEGATIVE) Urine Fentanyl Screen Neg (NEGATIVE) Urine Barbiturates Screen Neg (NEGATIVE) Urine Phencyclidine Screen Neg (NEGATIVE) Urine Amphetamines Screen Neg (NEGATIVE) Urine Benzodiazepines Screen Neg (NEGATIVE) Urine Cocaine Screen Neg (NEGATIVE) Urine Cannabinoids Screen Neg (NEGATIVE) Troponin I High Sensitivity < 3 ng/L (</=34) Thyroid Stimulating Hormone (TSH) 1.52 uIU/mL (0.55-4.78) Free Thyroxine (T4) Calculated 1.49 ng/dL (0.89-1.76) Hepatitis B Surface Antigen Negative (Negative) Hepatitis C Antibody Negative (Negative) Other Laboratory Tests 09/04/25 06:18 Brief Hx & Hospital Course: The patient was originally seen by Dr Clifton eLwis. 55-year-old female with a history of depression anxiety adjustment disorder came in with a complaint that she fell at home after syncopal episode. Complained of nausea and vomiting and headache. CT head was negative also complained of low back pain CT LS spine without contrast was ordered. Patient has had multiple somatic complaints. Flu test negative COVID test negative all labs were normal diabetes ruled out . The patient has psychiatric history. Tele psych consult by as the patient was complaining of multiple unrelated somatic complaints. Recommended no 5150. [place] patient has been Sharath diazepam withdrawal effect and advised not to use benzodiazepines like Ativan or Xanax he recommended Remeron 7.5 mg at nighttime and Seroquel 50 mg nighttime. Patient was treated with the pain medications while in the hospital. Being discharged home on Remeron Seroquel and [place] for the pain echo 65 percent ejection fraction. She was advised to follow up with the [facility] [place] for further care as recommended by the tele psych DrDann Kellogg and VINCENT Quiles at bedside at the time of discharge plan Consults/Reason for consult Tele psych Dr. Poole Operations or Procedures CT LS spine CT head Condition at Discharge: Fair Final Diagnosis/Problems List Tele psych consult by Dr. Poole appreciated Not a 5150 Candidate Generalized Anxiety Disorder Benzodiazepine Withdrawal or Cessation Effects Adjustment Disorder with Anxiety Major Depressive Disorder, Recurrent, Mild Insomnia Disorder, secondary to medication discontinuation Recommended add Remeron 7.5 mg HS and Seroquel 50 mg HS DC benzodiazepines Presyncope: Echo 65 percent ejection fraction Falls Low back pain after fall: CT LS spine without contrast ordered Diabetes ruled out All labs were normal Flu test negative COVID test neg Discharge Disposition: Home Discharge Instruct/Medications Diet: Regular Activity: Light activity Follow Up/Referral: Follow up with the primary Dr in one week Follow up with [facility] for further psychiatric care Continue previous home medications Use new medications as prescribed Do not take any Ativan or Xanax Medications: Remeron Seroquel [place] Transmitted [address] Scheduled Aspirin (Aspir-Low), 81 MG PO DAILY, (Reported) 35 (Time taken for discharge summary 35 minutes) Discharge Statement: "Patient was advised to return to the ER or call 911 if any headaches, dizziness, shortness of breath, chest pain, abdominal pain, bleeding, fevers, or worsening of medical condition. Patient was counseled about treatment plan, medications, possible side effects, patientverbalized understanding. All questions were answered to the best of my ability. This discharge took greater then 30 minutes in planning, reviewing documentation, counseling the patient, and discussing with other team members." ASSESSMENT ASSESSMENT Hospital Course Improved Assessment Tele psych consult by Dr. Poole appreciated Not a 5150 Candidate Generalized Anxiety Disorder Benzodiazepine Withdrawal or Cessation Effects Adjustment Disorder with Anxiety Major Depressive Disorder, Recurrent, Mild Insomnia Disorder, secondary to medication discontinuation Recommended add Remeron 7.5 mg HS and Seroquel 50 mg HS DC benzodiazepines Presyncope: Echo 65 percent ejection fraction Falls Low back pain after fall: CT LS spine without contrast ordered Diabetes ruled out All labs were normal Flu test negative COVID test neg Date of Service: Sep 06, 2025 Billing Provider: JONATHAN GONZALEZ MD Common Visit Codes: [id number] DISCH DAY >30min JONATHAN GONZALEZ MD Sep 06, 2025 10:19
[2025-09-06] MEDS ORDERED: QUET50TA PO (10:29)
[2025-09-06] MEDS ORDERED: MIRT-93 PO (10:29)
[2025-09-06] MEDS ORDERED: HYDR-4798 PO (10:29)
[2025-09-06] MEDS: HYDROmorphone HCL 2 MG/ML VL/or syr IV ONE (10:52)
--- NOTE | 2025-09-06 12:09 | DVH ---
EXAM: CT LS SPINE WO CONTRAST INDICATION: Low Back pain after fall COMPARISON: CT HEAD WITHOUT CONTRAST on DOS: 09/03/25, CT BRAIN on DOS: 04/19/23 TECHNIQUE: Multiple axial CT images of the lumbar spine were obtained using bone algorithm. Axial and coronal reformatting was done. Bone and soft tissue windows were reviewed. Radiation Dose Information: CT Dose: CTDI volume is 24.78 mGy. Dose-length product is 1000.45 mGy*cm FINDINGS: No CT evidence of acute fracture or traumatic mal-alignment. The visualized paraspinal soft tissues are grossly unremarkable. The disc spaces are relatively preserved. There is multilevel degenerative change of the spine, with disc space narrowing, subchondral sclerosis, and marginal osteophyte formation. IMPRESSION: No CT evidence of acute fracture or traumatic mal-alignment of the bony lumbar spine. Radiation optimization: All CT scans at this facility use at least one of these dose optimization techniques: automated exposure control mA and/or kV adjustment per patient size (includes targeted exams where dose is matched to clinical indication) or iterative reconstruction.
[2025-09-06] MEDS ORDERED: ZOFR4T PO (12:34)
[2025-09-06] MEDS ORDERED: ATOR20TA PO (12:34)
[2025-09-06 13:07] VITALS: BP 120/85; PULSE 94; RESP 20; TEMP 97.7; O2SAT 94
[2025-09-06 17:00] VITALS: BP 147/88; PULSE 86; RESP 20; TEMP 97.5; O2SAT 97
--- NOTE | 2025-09-08 06:25 | ECG ---
[facility] Test Date: 2025-09-03 Test Time: 11:02:17 Pat Name: PARISH MATTSON Department: Room: 0223T A Gender: F [employer]: CLARK : 1970 Requested By: TANIA ROSS Order Number: [id number] Reading MD: Faustino Crandall Measurements Intervals [place] Rate: 115 P: 71 AR: 127 QRS: 56 QRSD: 72 T: 65 QT: 311 QTc: 430 Interpretive Statements Sinus tachycardia Low voltage, precordial leads Electronically Signed On 09-12-2025 10:03:37 PST by Faustino Crandall Please click the below link to view image of tracing.
== END 2025-09-06 18:30 | disposition home or self-care (01) | DRG 48 ==
LOC: ER 10:53 → OVERFLOW 15:26 → TELE-CENTR 20:25
PROVIDERS: ADMIT Family Medicine; ATTEND Family Medicine
DX: G90.89 Other disorders of autonomic nervous system (principal); S09.90XA Unspecified injury of head, initial encounter; F13.239 Sedative, hypnotic or anxiolytic dependence with withdrawal, unspecified; F33.0 Major depressive disorder, recurrent, mild; E86.0 Dehydration; Z20.822 Contact with and (suspected) exposure to COVID-19; F41.1 Generalized anxiety disorder; G47.00 Insomnia, unspecified; F43.22 Adjustment disorder with anxiety; K52.9 Noninfective gastroenteritis and colitis, unspecified; W19.XXXA Unspecified fall, initial encounter; Z79.899 Other long term (current) drug therapy; Y92.009 Unspecified place in unspecified non-institutional (private) residence as the place of occurrence of the external cause
CPT/HCPCS: 36415; 70450; 72131; 80048; 80053; 80307; 81001; 84439; 84443; 84484; 85025; 86803; 87340; 87426; 87804; 93005; 93306; 96361; 96374; 97163; G0378; J2405

== ENCOUNTER 2025-11-02 17:21 | Emergency (ER) | payer MEDICAID ==
[~2025-11-02] VITALS: Ht 175.3 cm; Wt 85.7 kg
[~2025-11-02 17:21] MED LIST: ASPI-543 PO; ATOR20TA PO; HYDR-4798 PO; MIRT-93 PO; QUET50TA PO; ZOFR4T PO
[2025-11-02] MEDS: clonazePAM 0.5 MG TAB PO ONE (18:15)
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
[2025-11-02] MEDS: ACETAMINOPHEN 325 MG TAB PO ONE (18:49)
--- NOTE | 2025-11-02 18:51 | DVH ---
CHEST RADIOGRAPH INDICATION: [facility] TECHNIQUE: Single frontal view of the chest was obtained COMPARISON: None FINDINGS: Lines and Tubes: None Lungs: No focal consolidation. Pleura: No effusion. No pneumothorax. Cardiomediastinal contours: Unremarkable Bones: No acute osseous abnormality. IMPRESSION: 1. No acute cardiopulmonary disease.
--- NOTE | 2025-11-02 18:55 | DVH ---
EXAM: CT HEAD WITHOUT CONTRAST INDICATION: [facility] TECHNIQUE:: CT images of the head were obtained without administration of IV contrast. CT scans at this facility use dose modulation, iterative reconstruction, and/or weight based dosing when appropriate to reduce radiation dose to as low as reasonably achievable. COMPARISON: CT HEAD WITHOUT CONTRAST on DOS: 09/03/25 FINDINGS: PARENCHYMA: No acute hemorrhage. There is no mass effect, midline shift, or herniation. There is preservation of the dalton white differentiation. VENTRICLES: No hydrocephalus. EXTRA-AXIAL SPACES: No extra-axial fluid collections. OTHER: The bony structures are intact. Visualized portions of the paranasal sinuses and mastoid air cells are clear. IMPRESSION: 1. No CT evidence of an acute intracranial abnormality.
--- NOTE | 2025-11-02 19:03 | DVH ---
EXAM: CT CERVICAL WITHOUT CONTRAST INDICATION: [facility] TECHNIQUE:: Non contrast axial images of the cervical spine have been obtained with coronal and sagittal reformatted images. CT scans at this facility use dose modulation, iterative reconstruction, and/or weight based dosing when appropriate to reduce radiation dose to as low as reasonably achievable. COMPARISON:: None FINDINGS: ANATOMY: Straightening of the normal cervical lordosis, which may be seen in the setting of patient positioning versus muscular spasm. VERTEBRAL BODIES: The vertebral bodies are normal in height and alignment. The dens is intact, the lateral masses of C1 are normally aligned, and the atlantodental interval is normal for age. SPINAL CANAL: No significant spinal canal stenosis. INTERVERTEBRAL DISCS: No CT findings to suggest traumatic disc herniation or acute hematoma. SOFT TISSUES: There is no prevertebral soft tissue swelling. OTHER: Ground-glass opacities in bilateral upper lobes which is indeterminate may reflect infiltrate versus pulmonary alveolar edema. 0.7 cm hypoattenuating nodule in the right thyroid lobe, likely benign. IMPRESSION: 1. No acute cervical spine fracture or malalignment.
[2025-11-02] MEDS: SILVER SULFADIAZINE 1 % TOPICAL CREAM 50GM TOP ONE (20:00)
[2025-11-02 20:47] VITALS: BP 131/85; PULSE 78; RESP 15; TEMP 98.5; O2SAT 99
[2025-11-02] MEDS: HALOPERIDOL LACTATE 5 MG/ML INJ VIAL IM ONE (21:08)
[2025-11-02] MEDS ORDERED: HYDR-4902 PO (21:34)
== END 2025-11-02 21:47 | disposition home or self-care (01) ==
LOC: ER 17:21
DX: S16.1XXA Strain of muscle, fascia and tendon at neck level, initial encounter (principal); F41.9 Anxiety disorder, unspecified; Z79.82 Long term (current) use of aspirin; Z79.899 Other long term (current) drug therapy; V89.2XXA Person injured in unspecified motor-vehicle accident, traffic, initial encounter; Y93.I9 Activity, other involving external motion; Y92.488 Other paved roadways as the place of occurrence of the external cause; Y99.8 Other external cause status
CPT/HCPCS: 70450; 71045; 72125; 96372; 99285; J1630